=== PATIENT | female | born 1950 | race Caucasian/White ===

== ENCOUNTER → 2021-08-30 | Outpatient (CLI) | payer MEDICARE | LOC: M WHC 09:30 | PROVIDERS: ATTEND Internal Medicine | DX: N83.201 Unspecified ovarian cyst, right side (principal) ==

== ENCOUNTER → 2021-09-05 | Outpatient (CLI) | payer MEDICARE | LOC: M CARPUL 09:04 | PROVIDERS: ATTEND Internal Medicine | DX: I27.23 Pulmonary hypertension due to lung diseases and hypoxia (principal) ==

== ENCOUNTER → 2021-09-27 | Outpatient (CLI) | payer MEDICARE | LOC: M WHC 12:47 → EDUNIT# 13:30 | PROVIDERS: ATTEND Internal Medicine | DX: Z12.31 Encounter for screening mammogram for malignant neoplasm of breast (principal) ==

== ENCOUNTER → 2021-10-09 | Outpatient (CLI) | payer MEDICARE | LOC: M WHC 13:30 | PROVIDERS: ATTEND Nurse Practitioner Adult Health | DX: N63.0 Unspecified lump in unspecified breast (principal); N64.89 Other specified disorders of breast | CPT/HCPCS: 77066; G0279 ==

== ENCOUNTER → 2021-12-03 | Outpatient (CLI) | payer MEDICARE | LOC: M WUC 15:04 | PROVIDERS: ATTEND Internal Medicine | DX: M25.572 Pain in left ankle and joints of left foot (principal) ==

== ENCOUNTER → 2021-12-12 | Outpatient (CLI) | payer MEDICARE | LOC: M SOG 14:08 | PROVIDERS: ATTEND Orthopaedic Surgery Hand Surgery | DX: M79.604 Pain in right leg (principal) ==

== ENCOUNTER → 2021-12-19 | Outpatient (CLI) | payer MEDICARE | LOC: M WHC 16:02 | PROVIDERS: ATTEND Nurse Practitioner Adult Health | DX: N63.15 Unspecified lump in the right breast, overlapping quadrants (principal) ==

== ENCOUNTER 2022-02-23 09:52 | Emergency (ER) | payer MEDICARE ==
[~2022-02-23] VITALS: Ht 152.4 cm; Wt 38.2 kg
[2022-02-23] MEDS ORDERED: PREG300C (10:03)
[2022-02-23] MEDS ORDERED: DULO1CAP6 (10:03)
[2022-02-23] MEDS ORDERED: METO50TA9 (10:03)
[2022-02-23] MEDS ORDERED: PROM25TA12 (10:03)
[2022-02-23] MEDS ORDERED: ESTR0.1C5 (10:03)
[2022-02-23] MEDS ORDERED: FENT1DIS14 (10:03)
[2022-02-23] MEDS ORDERED: METH10TA (10:03)
[2022-02-23] MEDS ORDERED: HYDR-3716 (10:03)
[2022-02-23] MEDS ORDERED: STIO1AER (10:03)
[2022-02-23] MEDS ORDERED: LIDOCAINE W/EPINEPHRINE 1% 20ML VIAL SC ONE (11:10)
[2022-02-23] MEDS ORDERED: BACITRACIN OINTMENT 30GM TUBE TOP STA (12:27)
[2022-02-23 12:30] VITALS: BP 161/76
== END 2022-02-23 12:38 | disposition home or self-care (01) ==
LOC: M ED 09:52
DX: S51.812A Laceration without foreign body of left forearm, initial encounter (principal); W01.190A Fall on same level from slipping, tripping and stumbling with subsequent striking against furniture, initial encounter; Y92.098 Other place in other non-institutional residence as the place of occurrence of the external cause; I10 Essential (primary) hypertension; J44.9 Chronic obstructive pulmonary disease, unspecified; F17.200 Nicotine dependence, unspecified, uncomplicated; Z79.899 Other long term (current) drug therapy; Z79.890 Hormone replacement therapy; Z88.2 Allergy status to sulfonamides

== ENCOUNTER → 2022-03-11 | Outpatient (CLI) | payer MEDICARE ==
[~2022-03-11] MED LIST: DULO1CAP6; ESTR0.1C5; FENT1DIS14; HYDR-3716; METH10TA; METO50TA9; PREG300C; PROM25TA12; STIO1AER
[2022-03-11 14:50] LABS: BASO # 0.1 10^3/uL (0.0-0.2); BASO % 1.3 % (0.0-1.0); EOS # 0.5 10^3/uL (0.0-0.5); EOS % 4.6 % (0.0-3.0); HEMATOCRIT 41.6 % (36.0-47.0); HEMOGLOBIN 13.2 g/dl (12.0-15.5); LYMPH # 1.7 10^3/uL (1.5-5.0); LYMPH % 16.4 % (24.0-44.0); MEAN CORPUSCULAR HEMOGLOBIN 33.2 pg (27.0-33.0); MEAN CORPUSCULAR HGB CONC 31.7 g/dl (32.0-36.5); MEAN CORPUSCULAR VOLUME 104.5 fl (80.0-96.0); MONO % 9.6 % (2.0-8.0); NEUTROPHILS # 6.9 10^3/uL (1.5-8.5); NEUTROPHILS % 67.7 % (36.0-66.0); PLATELET COUNT, AUTOMATED 246 10^3/uL (150-450); RED BLOOD COUNT 3.98 10^6/uL (4.00-5.40); WHITE BLOOD COUNT 10.2 10^3/uL (4.0-10.0)
[2022-03-11 17:22] LABS: ALBUMIN 3.7 G/DL (3.2-5.2); ALT/SGPT 27 U/L (7.0-40); AMYLASE 98 U/L (30-118); BILIRUBIN,DIRECT 0.1 MG/DL (<0.4); BILIRUBIN,TOTAL 0.4 MG/DL (0.3-1.2); BLOOD UREA NITROGEN 23 MG/DL (9-23); CARBON DIOXIDE LEVEL 32 MMOL/L (20-31); CHLORIDE LEVEL 102 MMOL/L (98-107); GLOMERULAR FILTRATION RATE > 60.0 (>39); GLUCOSE, FASTING 95 MG/DL (74-106); LIPASE 73 U/L (12-53); POTASSIUM SERUM 4.5 MMOL/L (3.5-5.1); SODIUM LEVEL 142 MMOL/L (136-145); TOTAL PROTEIN 6.7 G/DL
== END ==
LOC: M LABDRWAD 10:45
PROVIDERS: ATTEND Internal Medicine Gastroenterology
DX: R11.0 Nausea (principal)

== ENCOUNTER 2022-05-09 11:15 | Inpatient (IN) | payer MEDICARE, SELFPAY ==
[~2022-05-09] VITALS: Ht 152.4 cm; Wt 38.4 kg
[2022-05-09] VITALS (8 sets, daily range): BP systolic 102–132; BP diastolic 57–70
[~2022-05-09 11:15] MED LIST changes: -ESTR0.1C5; +ESTR0.1C5 PV; -FENT1DIS14; +FENT1DIS14 TOP; -HYDR-3716; +HYDR-3716 PO; -METH10TA; +METH10TA PO; -PREG300C; +PREG300C PO; -PROM25TA12; +PROM25TA12 PO; -STIO1AER; +STIO1AER INH
[2022-05-09] MEDS ORDERED: NS 1,180 ML in IV 1 EA IV ONE (11:45)
[2022-05-09] MEDS: COMBIVENT RESPIMAT 100-20MCG INHALER 4GM INH SCH ×2 (11:49→11:50)
[2022-05-09 11:52] LABS: BASO # 0.1 10^3/uL (0.0-0.2); BASO % 0.5 % (0.0-1.0); HEMATOCRIT 40.5 % (36.0-47.0); LYMPH # 0.6 10^3/uL (1.5-5.0); MEAN CORPUSCULAR HEMOGLOBIN 32.9 pg (27.0-33.0); MEAN CORPUSCULAR HGB CONC 32.1 g/dl (32.0-36.5); MEAN CORPUSCULAR VOLUME 102.5 fl (80.0-96.0); MONO # 0.8 10^3/uL (0.0-0.8); MONO % 5.3 % (2.0-8.0); NEUTROPHILS # 13.8 10^3/uL (1.5-8.5); NEUTROPHILS % 89.5 % (36.0-66.0); PLATELET COUNT, AUTOMATED 246 10^3/uL (150-450); RED BLOOD COUNT 3.95 10^6/uL (4.00-5.40); WHITE BLOOD COUNT 15.4 10^3/uL (4.0-10.0)
[2022-05-09 12:17] LABS: ALKALINE PHOSPHATASE 121 U/L (46-116); ALT/SGPT 30 U/L (7.0-40); AST/SGOT 37 U/L (<34); BILIRUBIN,DIRECT 0.2 MG/DL (<0.4); BILIRUBIN,TOTAL 0.4 MG/DL (0.3-1.2); BLOOD UREA NITROGEN 20 MG/DL (9-23); CALCIUM LEVEL 8.9 MG/DL (8.3-10.6); CARBON DIOXIDE LEVEL 33 MMOL/L (20-31); CHLORIDE LEVEL 101 MMOL/L (98-107); CREATININE FOR GFR 0.78 MG/DL (0.55-1.30); GLOMERULAR FILTRATION RATE > 60.0 (>39); GLUCOSE, FASTING 131 MG/DL (74-106); POTASSIUM SERUM 4.3 MMOL/L (3.5-5.1); SODIUM LEVEL 139 MMOL/L (136-145); TOTAL PROTEIN 6.5 G/DL (5.7-8.2)
[2022-05-09 12:19] LABS: THYROID STIMULATING HORMONE 1.276 uIU/ML (0.55-4.78); THYROXINE (T4) 8.6 UG/DL (4.5-10.9)
[2022-05-09] MEDS ORDERED: ISOVUE-370 76% 100ML VIAL As Ordered ONE (12:20)
[2022-05-09] MEDS ORDERED: AZITHROMYCIN INJ 500 MG, VIAL MATE ADAPTER 1 EACH in D5W 250 ML IV ONE (13:35)
[2022-05-09] MEDS ORDERED: cefTRIAXone SOD 2 GM in D5W MINI-BAG PLUS 50 ML IV ONE (13:35)
[2022-05-09] MEDS ORDERED: methylPREDNISolone 125MG 2ML VIAL IV ONE (14:35)
[2022-05-09] MEDS ORDERED: ESTR125TA PO (15:19)
[2022-05-09] MEDS ORDERED: NITR100C2 PO (15:19)
[2022-05-09] MEDS ORDERED: MIRT1TAB PO (15:19)
[2022-05-09] MEDS ORDERED: DULO20CA27 PO (15:19)
[2022-05-09] MEDS ORDERED: METO1TAB32 PO (15:19)
[2022-05-09] MEDS ORDERED: CHLO125TA PO (15:19)
[2022-05-09] MEDS ORDERED: HOME MED LIST COMPLETE! XX SCH (15:20)
[2022-05-09] MEDS: IPRATROPIUM 0.5MG/ALBUTEROL 2.5MG INH SOL UD 3ML (DUONEB) NEB SCH ×2 (16:03→19:10)
[2022-05-09 16:19] LABS: ABG HCO3 29.9 MEQ/L (22.0-26.0); ABG O2 SATURATION 88.5 % (95.0-99.0); ABG PARTIAL PRESSURE CO2 61.6 mmHg (35.0-45.0); ABG PARTIAL PRESSURE O2 61.9 mmHg (75.0-100.0); ABG TOTAL CO2 31.8 MEQ/L (23.0-31.0); ABG pH (ARTERIAL) 7.304 UNITS (7.350-7.450)
[2022-05-09 16:24] LABS: CK-MB VALUE MASS < 1.0 NG/ML (<3.6)
[2022-05-09 16:26] LABS: CPK CREATINE PHOSPHOKINASE 129 U/L (34-145); MB/CK RELATIVE INDEX 0.77 (< OR =4)
[2022-05-09] MEDS: BUDESONIDE 0.25 MG/2 ML INHALATION SUSPENSION INH SCH (19:11)
[2022-05-09] MEDS ORDERED: fentaNYL 25 MCG/HR PATCH TOP SCH (20:00)
[2022-05-09] MEDS: DULoxetine 20MG CAP (CYMBALTA) PO SCH (20:08)
[2022-05-09] MEDS: HEPARIN SOD (PORCINE) 5000UNITS/ML 1ML VIAL/SYRINGE SC SCH (20:08)
[2022-05-09] MEDS: methylPREDNISolone 40MG 1ML VIAL IV SCH (20:08)
[2022-05-09] MEDS: ACETAMINOPHEN TAB 650MG DOSE (2X325MG) PO PRN (22:50)
[2022-05-10] VITALS (11 sets, daily range): BP systolic 97–142; BP diastolic 52–70
[2022-05-10] MEDS ORDERED: carisoprodoL 350 MG TAB PO ONE
[2022-05-10] MEDS: methylPREDNISolone 40MG 1ML VIAL IV SCH ×3 (02:34→18:40)
[2022-05-10] MEDS: ACETAMINOPHEN TAB 650MG DOSE (2X325MG) PO PRN ×2 (05:23→13:37)
[2022-05-10 05:38] LABS: BASO % 0.1 % (0.0-1.0); HEMATOCRIT 41.9 % (36.0-47.0); HEMOGLOBIN 13.6 g/dl (12.0-15.5); LYMPH # 0.6 10^3/uL (1.5-5.0); LYMPH % 4.6 % (24.0-44.0); MEAN CORPUSCULAR HEMOGLOBIN 32.9 pg (27.0-33.0); MEAN CORPUSCULAR HGB CONC 32.5 g/dl (32.0-36.5); MEAN CORPUSCULAR VOLUME 101.2 fl (80.0-96.0); MONO # 0.2 10^3/uL (0.0-0.8); MONO % 1.3 % (2.0-8.0); NEUTROPHILS # 11.6 10^3/uL (1.5-8.5); NEUTROPHILS % 93.2 % (36.0-66.0); PLATELET COUNT, AUTOMATED 249 10^3/uL (150-450); RED BLOOD COUNT 4.14 10^6/uL (4.00-5.40); WHITE BLOOD COUNT 12.4 10^3/uL (4.0-10.0)
[2022-05-10 05:51] LABS: MAGNESIUM LEVEL 1.8 MG/DL (1.8-2.4)
[2022-05-10 05:52] LABS: BLOOD UREA NITROGEN 21 MG/DL (9-23); CALCIUM LEVEL 8.2 MG/DL (8.3-10.6); CARBON DIOXIDE LEVEL 31 MMOL/L (20-31); CHLORIDE LEVEL 102 MMOL/L (98-107); CREATININE FOR GFR 0.65 MG/DL (0.55-1.30); GLOMERULAR FILTRATION RATE > 60.0 (>39); GLUCOSE, FASTING 142 MG/DL (74-106); POTASSIUM SERUM 4.1 MMOL/L (3.5-5.1); SODIUM LEVEL 140 MMOL/L (136-145)
[2022-05-10 06:22] LABS: ABG BASE EXCESS 3.7 (-2.0-2.0); ABG HCO3 31.2 MEQ/L (22.0-26.0); ABG O2 SATURATION 95.4 % (95.0-99.0); ABG PARTIAL PRESSURE CO2 59.1 mmHg (35.0-45.0); ABG PARTIAL PRESSURE O2 79.9 mmHg (75.0-100.0); ABG STANDARD HCO3 27.7 MEQ/L (22.0-26.0)
[2022-05-10] MEDS: IPRATROPIUM 0.5MG/ALBUTEROL 2.5MG INH SOL UD 3ML (DUONEB) NEB SCH ×4 (08:22→19:20)
[2022-05-10] MEDS: BUDESONIDE 0.25 MG/2 ML INHALATION SUSPENSION INH SCH ×2 (08:23→19:20)
[2022-05-10] MEDS: HEPARIN SOD (PORCINE) 5000UNITS/ML 1ML VIAL/SYRINGE SC SCH ×3 (08:50→21:05)
[2022-05-10] MEDS: DULoxetine 20MG CAP (CYMBALTA) PO SCH ×2 (08:50→21:05)
[2022-05-10] MEDS: PANTOPRAZOLE 40MG VIAL IV SCH (08:50)
[2022-05-10] MEDS ORDERED: FUROSEMIDE 20 MG TAB PO ONE (09:05)
[2022-05-10] MEDS ORDERED: PERCOCET 5MG/325MG TAB PO PRN (09:40)
[2022-05-10] MEDS ORDERED: ONDANSETRON 4MG 2ML VIAL IV PRN (09:40)
[2022-05-10] MEDS: METOPROLOL SUCC *XL* 25MG TAB (TopROL *XL*) PO SCH (09:48)
[2022-05-10 10:23] LABS: APPEARANCE, URINE MANUAL CLEAR (CLEAR); COLOR, URINE MANUAL YELLOW (YELLOW); SPECIFIC GRAVITY,URINE MANUAL 1.025 (1.002-1.035)
[2022-05-10 10:24] LABS: BILIRUBIN, URINE MANUAL NEGATIVE (NEGATIVE); BLOOD URINE MANUAL NEGATIVE (NEGATIVE); GLUCOSE, URINE (UA) MANUAL NEGATIVE (NEGATIVE); KETONE, URINE MANUAL 1+ mg/dL (NEGATIVE); LEUKOCYTE ESTERASE, URINE MAN NEGATIVE (NEGATIVE); NITRITE, URINE MANUAL NEGATIVE (NEGATIVE); PROTEIN, URINE MANUAL TRACE mg/dL (NEGATIVE); UROBILINOGEN, URINE MANUAL NORMAL (NORMAL)
[2022-05-10 10:45] LABS: BACTERIA, URINE MOD AMOUNT; GRANULAR CAST, URINE 0-1 /lpf; HYALINE CAST, URINE 0-1 /lpf (0-1); SQUAMOUS EPITHELIAL CELL URINE MOD AMOUNT /hpf (SMALL AMT)
[2022-05-10] MEDS: CHLORTHALIDONE 12.5MG PER 1/2 TABLET PO SCH (13:37)
[2022-05-10] MEDS: ANEXSIA, NORCO 7.5MG/325MG TABLET(HYDROCODONE/APAP) PO PRN (14:58)
[2022-05-10] MEDS: cefTRIAXone SOD 1 GM in D5W MINI-BAG PLUS 50 ML IV SCH (14:58)
[2022-05-10] MEDS ORDERED: FUROSEMIDE 20MG/2ML VIAL IV ONE (16:00)
[2022-05-10] MEDS ORDERED: AZITHROMYCIN INJ 500 MG, VIAL MATE ADAPTER 1 EACH in NS 250 ML IV SCH (16:00)
[2022-05-10] MEDS: PREGABALIN 100 MG CAP (LYRICA) PO SCH (21:05)
[2022-05-11] VITALS (7 sets, daily range): BP systolic 106–132; BP diastolic 56–68
[2022-05-11] MEDS: ANEXSIA, NORCO 7.5MG/325MG TABLET(HYDROCODONE/APAP) PO PRN ×3 (00:36→22:38)
[2022-05-11] MEDS: methylPREDNISolone 40MG 1ML VIAL IV SCH ×3 (02:13→18:18)
[2022-05-11] MEDS: HEPARIN SOD (PORCINE) 5000UNITS/ML 1ML VIAL/SYRINGE SC SCH ×3 (05:16→22:30)
[2022-05-11] MEDS: ACETAMINOPHEN TAB 650MG DOSE (2X325MG) PO PRN (05:16)
[2022-05-11 05:42] LABS: ABG BASE EXCESS 6.4 (-2.0-2.0); ABG HCO3 34.6 MEQ/L (22.0-26.0); ABG O2 SATURATION 94.1 % (95.0-99.0); ABG PARTIAL PRESSURE O2 72.8 mmHg (75.0-100.0); ABG STANDARD HCO3 30.2 MEQ/L (22.0-26.0); ABG TOTAL CO2 36.7 MEQ/L (23.0-31.0); ABG pH (ARTERIAL) 7.328 UNITS (7.350-7.450)
[2022-05-11 05:43] LABS: ABG PARTIAL PRESSURE CO2 67.5 mmHg (35.0-45.0)
[2022-05-11 05:50] LABS: HEMATOCRIT 38.9 % (36.0-47.0); HEMOGLOBIN 12.7 g/dl (12.0-15.5); MEAN CORPUSCULAR HEMOGLOBIN 33.4 pg (27.0-33.0); MEAN CORPUSCULAR HGB CONC 32.6 g/dl (32.0-36.5); MEAN CORPUSCULAR VOLUME 102.4 fl (80.0-96.0); PLATELET COUNT, AUTOMATED 244 10^3/uL (150-450)
[2022-05-11 06:22] LABS: MAGNESIUM LEVEL 1.9 MG/DL (1.8-2.4)
[2022-05-11 06:24] LABS: BLOOD UREA NITROGEN 24 MG/DL (9-23); CALCIUM LEVEL 8.1 MG/DL (8.3-10.6); CARBON DIOXIDE LEVEL 35 MMOL/L (20-31); CHLORIDE LEVEL 101 MMOL/L (98-107); CREATININE FOR GFR 0.62 MG/DL (0.55-1.30); GLOMERULAR FILTRATION RATE > 60.0 (>39); GLUCOSE, FASTING 146 MG/DL (74-106); PHOSPHORUS LEVEL 2.7 MG/DL (2.4-5.1); POTASSIUM SERUM 4.1 MMOL/L (3.5-5.1); SODIUM LEVEL 141 MMOL/L (136-145)
[2022-05-11] MEDS: BUDESONIDE 0.25 MG/2 ML INHALATION SUSPENSION INH SCH ×2 (09:00→19:16)
[2022-05-11] MEDS: IPRATROPIUM 0.5MG/ALBUTEROL 2.5MG INH SOL UD 3ML (DUONEB) NEB SCH ×4 (09:01→19:16)
[2022-05-11] MEDS: PANTOPRAZOLE 40MG VIAL IV SCH (09:21)
[2022-05-11] MEDS: METOPROLOL SUCC *XL* 25MG TAB (TopROL *XL*) PO SCH (09:22)
[2022-05-11] MEDS: DULoxetine 20MG CAP (CYMBALTA) PO SCH ×2 (09:22→21:00)
[2022-05-11] MEDS: CHLORTHALIDONE 12.5MG PER 1/2 TABLET PO SCH (09:22)
[2022-05-11] MEDS: AZITHROMYCIN 250MG TABLET PO SCH (09:22)
[2022-05-11] MEDS: cefTRIAXone SOD 1 GM in D5W MINI-BAG PLUS 50 ML IV SCH (15:16)
[2022-05-11] MEDS ORDERED: FENTANYL REMOVAL DOCUMENTATION MISC XX SCH (20:00)
[2022-05-11] MEDS: PREGABALIN 100 MG CAP (LYRICA) PO SCH (21:00)
[2022-05-11] MEDS: fentaNYL 25 MCG/HR PATCH TOP SCH (21:02)
[2022-05-12] MEDS: methylPREDNISolone 40MG 1ML VIAL IV SCH (02:58)
[2022-05-12 04:11] VITALS: BP 117/62
[2022-05-12] MEDS: ACETAMINOPHEN TAB 650MG DOSE (2X325MG) PO PRN ×2 (04:20→13:00)
[2022-05-12 04:47] LABS: BASO % 0.1 % (0.0-1.0); HEMATOCRIT 39.7 % (36.0-47.0); HEMOGLOBIN 12.7 g/dl (12.0-15.5); LYMPH # 0.7 10^3/uL (1.5-5.0); LYMPH % 5.1 % (24.0-44.0); MEAN CORPUSCULAR HEMOGLOBIN 33.3 pg (27.0-33.0); MEAN CORPUSCULAR VOLUME 104.2 fl (80.0-96.0); MONO # 1.2 10^3/uL (0.0-0.8); MONO % 8.3 % (2.0-8.0); NEUTROPHILS # 11.9 10^3/uL (1.5-8.5); PLATELET COUNT, AUTOMATED 258 10^3/uL (150-450); RED BLOOD COUNT 3.81 10^6/uL (4.00-5.40); WHITE BLOOD COUNT 13.9 10^3/uL (4.0-10.0)
[2022-05-12 05:09] LABS: MAGNESIUM LEVEL 1.9 MG/DL (1.8-2.4)
[2022-05-12 05:10] LABS: BLOOD UREA NITROGEN 22 MG/DL (9-23); CALCIUM LEVEL 8.4 MG/DL (8.3-10.6); CARBON DIOXIDE LEVEL 36 MMOL/L (20-31); CHLORIDE LEVEL 101 MMOL/L (98-107); CREATININE FOR GFR 0.55 MG/DL (0.55-1.30); GLOMERULAR FILTRATION RATE > 60.0 (>39); GLUCOSE, FASTING 121 MG/DL (74-106); PHOSPHORUS LEVEL 2.6 MG/DL (2.4-5.1); POTASSIUM SERUM 4.4 MMOL/L (3.5-5.1); SODIUM LEVEL 140 MMOL/L (136-145)
[2022-05-12] MEDS: HEPARIN SOD (PORCINE) 5000UNITS/ML 1ML VIAL/SYRINGE SC SCH ×3 (05:25→21:34)
[2022-05-12 07:55] VITALS: O2SAT 90
[2022-05-12] MEDS: IPRATROPIUM 0.5MG/ALBUTEROL 2.5MG INH SOL UD 3ML (DUONEB) NEB SCH ×4 (07:57→19:29)
[2022-05-12] MEDS: BUDESONIDE 0.25 MG/2 ML INHALATION SUSPENSION INH SCH ×2 (07:57→19:29)
[2022-05-12 08:00] VITALS: BP 124/60
[2022-05-12] MEDS: PANTOPRAZOLE 40MG VIAL IV SCH (08:33)
[2022-05-12] MEDS: DULoxetine 20MG CAP (CYMBALTA) PO SCH ×2 (08:33→20:01)
[2022-05-12] MEDS: METOPROLOL SUCC *XL* 25MG TAB (TopROL *XL*) PO SCH (08:33)
[2022-05-12] MEDS: AZITHROMYCIN 250MG TABLET PO SCH (08:34)
[2022-05-12] MEDS: predniSONE 20 MG TAB PO SCH (10:41)
[2022-05-12] MEDS: ANEXSIA, NORCO 7.5MG/325MG TABLET(HYDROCODONE/APAP) PO PRN (13:01)
[2022-05-12] MEDS: cefTRIAXone SOD 1 GM in D5W MINI-BAG PLUS 50 ML IV SCH (14:42)
[2022-05-12 16:00] VITALS: BP 123/56
[2022-05-12 19:52] VITALS: BP 153/70
[2022-05-12] MEDS: PREGABALIN 100 MG CAP (LYRICA) PO SCH (20:12)
[2022-05-12] MEDS: guaiFENesin ER 600 MG TAB PO SCH (21:34)
[2022-05-13] MEDS: ACETAMINOPHEN TAB 650MG DOSE (2X325MG) PO PRN ×2 (00:29→12:42)
[2022-05-13 04:19] VITALS: BP 113/66
[2022-05-13 04:49] LABS: HEMATOCRIT 39.9 % (36.0-47.0); HEMOGLOBIN 12.7 g/dl (12.0-15.5); MEAN CORPUSCULAR HGB CONC 31.8 g/dl (32.0-36.5); MEAN CORPUSCULAR VOLUME 103.6 fl (80.0-96.0); PLATELET COUNT, AUTOMATED 249 10^3/uL (150-450); RED BLOOD COUNT 3.85 10^6/uL (4.00-5.40); WHITE BLOOD COUNT 12.7 10^3/uL (4.0-10.0)
[2022-05-13 05:16] LABS: MAGNESIUM LEVEL 1.8 MG/DL (1.8-2.4)
[2022-05-13 05:17] LABS: BLOOD UREA NITROGEN 20 MG/DL (9-23); CALCIUM LEVEL 8.3 MG/DL (8.3-10.6); CARBON DIOXIDE LEVEL 36 MMOL/L (20-31); CHLORIDE LEVEL 102 MMOL/L (98-107); CREATININE FOR GFR 0.53 MG/DL (0.55-1.30); GLOMERULAR FILTRATION RATE > 60.0 (>39); GLUCOSE, FASTING 84 MG/DL (74-106); PHOSPHORUS LEVEL 2.4 MG/DL (2.4-5.1); POTASSIUM SERUM 3.8 MMOL/L (3.5-5.1); SODIUM LEVEL 140 MMOL/L (136-145)
[2022-05-13] MEDS ORDERED: FARX1TAB3 PO (06:11)
[2022-05-13] MEDS: HEPARIN SOD (PORCINE) 5000UNITS/ML 1ML VIAL/SYRINGE SC SCH (06:20)
[2022-05-13] MEDS: IPRATROPIUM 0.5MG/ALBUTEROL 2.5MG INH SOL UD 3ML (DUONEB) NEB SCH ×4 (07:56→20:33)
[2022-05-13] MEDS: BUDESONIDE 0.25 MG/2 ML INHALATION SUSPENSION INH SCH (07:59)
[2022-05-13 08:00] VITALS: BP 150/70
[2022-05-13] MEDS ORDERED: MAG SULF 1GM/100ML (MAG RUN) 1 GM in IV 1 EA IV ONE (08:00)
[2022-05-13] MEDS: PANTOPRAZOLE 40MG VIAL IV SCH (08:39)
[2022-05-13] MEDS: AZITHROMYCIN 250MG TABLET PO SCH (08:40)
[2022-05-13] MEDS: predniSONE 20 MG TAB PO SCH (08:40)
[2022-05-13] MEDS: guaiFENesin ER 600 MG TAB PO SCH ×2 (08:40→20:23)
[2022-05-13 08:41] VITALS: BP 150/70
[2022-05-13] MEDS: DULoxetine 20MG CAP (CYMBALTA) PO SCH (08:41)
[2022-05-13] MEDS: METOPROLOL SUCC *XL* 25MG TAB (TopROL *XL*) PO SCH (08:41)
[2022-05-13 08:48] VITALS: O2SAT 92
[2022-05-13] MEDS ORDERED: MIRALAX *UNIT DOSE* 17GM PACKET PO PRN (11:30)
[2022-05-13] MEDS: ANEXSIA, NORCO 7.5MG/325MG TABLET(HYDROCODONE/APAP) PO PRN (13:09)
[2022-05-13] MEDS: SENNA 8.6 MG TAB (SENOKOT) PO PRN (13:09)
[2022-05-13] MEDS ORDERED: HYOSCYAMINE SULFATE 0.125 MG SUBL TABLET PO PRN (13:15)
[2022-05-13] MEDS ORDERED: FLEET ENEMA PR PRN (13:15)
[2022-05-13] MEDS ORDERED: ATROPINE SULFATE 1% OPHTH SOLN 2ML BTL SL PRN (13:15)
[2022-05-13] MEDS ORDERED: SCOPOLAMINE 1MG TRANSDERMAL PATCH TOP PRN (13:15)
[2022-05-13] MEDS ORDERED: BISACODYL 10MG SUPP PR PRN (13:15)
[2022-05-13] MEDS: fentaNYL 25 MCG/HR PATCH TOP SCH (20:24)
[2022-05-13] MEDS: FENTANYL REMOVAL DOCUMENTATION MISC XX SCH (20:32)
[2022-05-13] MEDS: ONDANSETRON 4MG ORAL DISINTEGRATING TAB PO PRN (20:45)
[2022-05-13] MEDS: MORPHINE 10MG/0.5ML ORAL CONCENTRATE SOLUTION U/D SL PRN (20:45)
[2022-05-14] MEDS: MORPHINE 10MG/0.5ML ORAL CONCENTRATE SOLUTION U/D SL PRN ×2 (00:36→04:34)
[2022-05-14] MEDS: ACETAMINOPHEN TAB 650MG DOSE (2X325MG) PO PRN ×2 (01:58→06:48)
[2022-05-14] MEDS: ONDANSETRON 4MG ORAL DISINTEGRATING TAB PO PRN (04:33)
[2022-05-14] MEDS: SENNA 8.6 MG TAB (SENOKOT) PO PRN (06:48)
[2022-05-14] MEDS: IPRATROPIUM 0.5MG/ALBUTEROL 2.5MG INH SOL UD 3ML (DUONEB) NEB SCH (07:53)
[2022-05-14] MEDS ORDERED: ALBUTEROL SULFATE 2.5MG/0.5ML INH NEB SOLN NEB PRN (08:50)
[2022-05-14] MEDS: LORazepam 1 MG TAB PO PRN (08:50)
[2022-05-14] MEDS: MORPHINE 2 MG/ML 1ML VIAL IV PRN ×5 (08:50→23:02)
[2022-05-14] MEDS: guaiFENesin ER 600 MG TAB PO SCH ×2 (08:50→20:45)
[2022-05-14] MEDS: ONDANSETRON 4MG 2ML VIAL IV PRN ×2 (11:03→17:23)
[2022-05-14 18:16] LABS: BODY FLUID CULTURE Not indicated. (.); LEGIONELLA ANTIGEN URINE Negative (Negative); ORGANISM ID Not indicated. (.); SPECIMEN SOURCE Urine (.); URINE STREP PNEUMONIAE ANTIGEN Negative (Negative)
[2022-05-14] MEDS: LORazepam 2 MG/ML VIAL IV PRN ×2 (20:44→23:02)
[2022-05-15] MEDS: ONDANSETRON 4MG 2ML VIAL IV PRN ×3 (06:54→22:54)
[2022-05-15] MEDS: guaiFENesin ER 600 MG TAB PO SCH ×2 (09:06→21:12)
[2022-05-15] MEDS: MORPHINE 2 MG/ML 1ML VIAL IV PRN ×3 (09:06→21:21)
[2022-05-15] MEDS: LORazepam 1 MG TAB PO PRN ×2 (09:07→16:18)
[2022-05-15] MEDS: MORPHINE 10MG/0.5ML ORAL CONCENTRATE SOLUTION U/D SL PRN (13:55)
[2022-05-15] MEDS: SENNA 8.6 MG TAB (SENOKOT) PO PRN (16:13)
[2022-05-15] MEDS: FENTANYL REMOVAL DOCUMENTATION MISC XX SCH (21:10)
[2022-05-15] MEDS: fentaNYL 25 MCG/HR PATCH TOP SCH (21:10)
[2022-05-16] MEDS: MORPHINE 2 MG/ML 1ML VIAL IV PRN ×2 (05:43→09:08)
[2022-05-16] MEDS: LORazepam 1 MG TAB PO PRN ×2 (09:07→21:39)
[2022-05-16] MEDS: guaiFENesin ER 600 MG TAB PO SCH ×2 (09:07→21:39)
[2022-05-16] MEDS: ONDANSETRON 4MG ORAL DISINTEGRATING TAB PO PRN ×2 (09:07→21:38)
[2022-05-16] MEDS: ACETAMINOPHEN TAB 650MG DOSE (2X325MG) PO PRN (11:45)
[2022-05-16] MEDS ORDERED: ONDANSETRON 4MG 2ML VIAL IV PRN (12:30)
[2022-05-16] MEDS ORDERED: PROCHLORPERAZINE 10MG 2ML VIAL IV PRN (12:30)
[2022-05-16] MEDS: PROMETHAZINE 25 MG TAB PO PRN ×3 (13:26→23:01)
[2022-05-16] MEDS: MORPHINE 10MG/0.5ML ORAL CONCENTRATE SOLUTION U/D SL PRN ×3 (13:30→21:39)
[2022-05-16] MEDS ORDERED: MORP1SOL5 PO (17:44)
[2022-05-16] MEDS ORDERED: HYOS125TA PO (17:44)
[2022-05-16] MEDS ORDERED: ATIV1TAB10 PO (17:44)
[2022-05-17] MEDS: MORPHINE 10MG/0.5ML ORAL CONCENTRATE SOLUTION U/D SL PRN ×3 (08:52→14:04)
[2022-05-17] MEDS: LORazepam 1 MG TAB PO PRN ×2 (08:53→14:04)
[2022-05-17] MEDS: guaiFENesin ER 600 MG TAB PO SCH (08:53)
[2022-05-17] MEDS: ONDANSETRON 4MG ORAL DISINTEGRATING TAB PO PRN (08:53)
[2022-05-17] MEDS ORDERED: [UNRECOGNIZED DRUG - CODE] PR (11:01)
[2022-05-17] MEDS ORDERED: ONDA-84 PO (11:02)
[2022-05-17] MEDS ORDERED: PROM50TA4 PO (11:14)
[2022-05-17] MEDS: PROMETHAZINE 25 MG TAB PO PRN (12:23)
== END 2022-05-17 14:39 | disposition hospice, home (50) | DRG 189 ==
LOC: M ED 11:15 → M ED INP 15:06 → ENRESERV 15:25 → M ICU 16:27 → M MSPAV 05-13 16:55
PROVIDERS: ADMIT Internal Medicine; ATTEND Internal Medicine
PROC: B246ZZZ Ultrasonography of Right and Left Heart (ICD-10-PCS; principal; 2022-05-12)
DX: J96.21 Acute and chronic respiratory failure with hypoxia (principal); J12.9 Viral pneumonia, unspecified; I50.33 Acute on chronic diastolic (congestive) heart failure; J44.1 Chronic obstructive pulmonary disease with (acute) exacerbation; J90 Pleural effusion, not elsewhere classified; J44.0 Chronic obstructive pulmonary disease with (acute) lower respiratory infection; J81.1 Chronic pulmonary edema; E87.4 Mixed disorder of acid-base balance; Z51.5 Encounter for palliative care; Z66 Do not resuscitate; J96.22 Acute and chronic respiratory failure with hypercapnia; E05.90 Thyrotoxicosis, unspecified without thyrotoxic crisis or storm; I11.0 Hypertensive heart disease with heart failure; M54.9 Dorsalgia, unspecified; F17.290 Nicotine dependence, other tobacco product, uncomplicated; E73.9 Lactose intolerance, unspecified; F17.210 Nicotine dependence, cigarettes, uncomplicated; J20.9 Acute bronchitis, unspecified; R30.0 Dysuria; G89.29 Other chronic pain; I27.29 Other secondary pulmonary hypertension; I08.1 Rheumatic disorders of both mitral and tricuspid valves; Z88.2 Allergy status to sulfonamides; Z88.8 Allergy status to other drugs, medicaments and biological substances; Z79.891 Long term (current) use of opiate analgesic; Z79.899 Other long term (current) drug therapy